=== PATIENT | female | born 1960 | race Two or more races ===

== ENCOUNTER 2024-10-14 08:47 | Outpatient (AMB) | payer BC, SELFPAY ==
[2024-10-14 09:00] VITALS: BP 162/92; PULSE 75; RESP 16; TEMP 36.3; BMI 29.1
--- NOTE | 2024-10-14 09:00 | ORTHONT_ITS ---
Vital signs 10/14/24 09:00 Height 1.68 m Height Method Stated Weight 82.299 kg Weight Measurement Method Standing Scale BMI 29.1 BP 162/92 H Blood Pressure Source Automatic Cuff Blood Pressure Location Right Upper Arm Position Sitting Respiration 16 Pulse 75 Pulse Source Monitor Temp 97.3 F Temp Source Temporal Artery Scan Oxygen Delivery Method Room Air Med/Allergies Allergies & Medications Allergies NKA* Allergy (Uncoded 10/14/24 09:02) Medication Reconciliation labetalol 200 mg tablet (Trandate) 200 mg PO BID #0 tabs 02/21/16 [History Confirmed 10/14/24] lisinopril 20 mg tablet 20 mg PO QDAY #0 tabs 01/05/24 [History Confirmed 10/14/24] Subjective Visit Visit for: follow up visit, knee and injections Immunization / Flu Flu Vaccine in the Last 12 Months: No Flu Vaccine Exclusion Criteria: No Exclusion Criteria History of Present Illness Chief complaint: KNEE INJECTIONS Date of 1st surgery (if applicable): R Knee surgery Patient is a pleasant 63-year-old female with left knee pain. I have been treating her for left knee osteoarthritis for a while. He was then left knee injections of a felt quite a while. She would like new injections today the last one was 3 months ago. The injections lasted for 3 months Personal History Occupation: retired Hobbies: house work Red flag PMH: smoker (non smoker ) and other (specify) (hypertension ) Pain Pain level (0-10): 5 Pain duration: WITH ACTIVITY Pain location: groin, inside (medial), outside (lateral), anterior and posterior Pain quality: sharp, dull and aching Pain timing: increases with activity Associated signs & symptoms: none Ambulatory data Ambulatory device: none Treatments Number of previous injections: 0 Improvement with previous injections: No Improvement with PT: No Improvement with NSAIDS: n/a Review of Systems Review of Systems: All systems negative unless otherwise noted in HPI. Exam Exam Patient is in no acute distress and is cooperative with the examination today. Breathing is nonlabored. In no respiratory distress. Bilateral extremities were evaluated and demonstrates sensation intact to light touch. Palpable pedal pulses are present. No significant edema is present. Bilateral hips were examined. The patient has no pain with log roll of the hips. Internal rotation to 30 degrees and external rotation to 30 degrees is painless. Negative FADIR. Right knee was examined today. The right knee is in reasonable alignment. Range of motion is from 0-120 degrees. Knee is stable to varus and valgus as well as AP translation with <5mm. Patient has a negative McMurrays. There is no pain with patellofemoral compression and no crepitus noted. The knee is nontender to palpation. Left knee is tender to palpation. Range of motion is 5 to 100 degrees. Assessment and Plan Problem List (1) Arthritis of left knee: Status: Acute Plan: Patient is a 63-year-old female with left knee pain and osteoarthritis. She is done with cortisone injections in the past. She would like another cortisone injection today Plan Recommend knee cortisone injection as patient would like to proceed with conservative treatment at this time. The risks and benefits of the procedure were reviewed with the patient and patient gave verbal consent to continue with the procedure. Procedure: performed by Dr. Cabello Using sterile technique the left knee was thoroughly prepped with alcohol, and approximately 1 cc of Kenalog 40 mg/mL and 4 cc of 1% lidocaine was injected without resistance into the medial tibial femoral joint space. The patient tolerated the procedure. Office Procedures GNS Level of Care Nursing/Assessment Patient Status: Established Patient Nursing Assessment/Reassesment: Medication Reconciliation, Update PMH in EMR and Vital Signs Coordination of Care: Complex Care and Chronic Disease 1-5, Education Complex Pt/Fam, Consent,records obtained, informed consent, Results/Orders obtained and Staff clarify orders Special Needs: Language special needs Established Patient Charge Established Patient Point Assignment: 95 Established Patient Point Charge: EP Level 3 (80-115) Surgical Proc/IM SQ injection Major Surgical Procedure: Yes (KNEE INJECTION) Medication Given Medication Given Medication Given: Yes Documented Dose Given: 4 Route: Infiitration Medication Given Medication Given Medication Given: Yes Documented Dose Given: 1 Route: Infiitration Office Meds Xylocaine 10 mg/mL (1 %) injection solution Performing Provider: Abimael Cabello MD Performing Location: [facility] Administered by: Abimael Cabello MD on 10/14/24 10:00 Dose Route Admin Location Dispensed Lot Number Expiration Date ND Maintenance Technician 20 mL Infiltration 20 mL [id number] 06/28/27 68304-442-59 FRES[employer] KA triamcinolone acetonide 40 mg/mL suspension for injection Performing Provider: Abimael Cabello MD Performing Location: [facility] Administered by: Abimael Cabello MD on 10/14/24 10:00 Dose Route Admin Location Dispensed Lot Number Expiration Date [facility] Maintenance Technician 40 mg Infiltration 1 mL [id number] 06/28/26 [address]-9 [employer] Past Medical History Past Medical History Have you ever been diagnosed with any of the following: Respiratory Problems Smoking: No Smoking Exposure: No
== END 2024-10-14 09:35 | disposition home or self-care (01) ==
LOC: HODSRG 08:47
PROVIDERS: PCP Internal Medicine; Referring Provider Internal Medicine; Supervising Provider Orthopaedic Surgery Adult Reconstructive Orthopaedic Surgery; Visit Provider Orthopaedic Surgery Adult Reconstructive Orthopaedic Surgery
DX: M17.12 Unilateral primary osteoarthritis, left knee (principal); I10 Essential (primary) hypertension
CPT/HCPCS: 20610; 99213; J3301; J3490; G0463

== ENCOUNTER 2025-03-07 08:46 | Outpatient (AMB) | payer BC, SELFPAY ==
--- NOTE | 2025-03-07 08:56 | PD.ORTHCLVIS ---
Vital signs 03/07/25 08:57 Height 1.68 m Height Method Stated Weight 80.456 kg Weight Measurement Method Standing Scale BMI 28.5 BP 134/84 H Blood Pressure Source Automatic Cuff Blood Pressure Location Left Upper Arm Position Sitting Respiration 19 Pulse 71 Pulse Source Monitor Temp 96.6 F L Temp Source Temporal Artery Scan Pulse Oximetry (%) 97 Oxygen Delivery Method Room Air Med/Allergies Allergies & Medications Allergies NKA* Allergy (Uncoded 03/07/25 09:01) Medication Reconciliation labetalol 200 mg tablet (Trandate) 200 mg PO BID #0 tabs 02/21/16 [History Confirmed 03/07/25] lisinopril 20 mg tablet 20 mg PO QDAY #0 tabs 01/05/24 [History Confirmed 03/07/25] Exam Exam Patient is in no acute distress and is cooperative with the examination today. Breathing is nonlabored. In no respiratory distress. Bilateral extremities were evaluated and demonstrates sensation intact to light touch. Palpable pedal pulses are present. No significant edema is present. Bilateral hips were examined. The patient has no pain with log roll of the hips. Internal rotation to 30 degrees and external rotation to 30 degrees is painless. Negative FADIR. Right knee was examined today. The right knee is in reasonable alignment. Range of motion is from 0-120 degrees. Knee is stable to varus and valgus as well as AP translation with <5mm. Patient has a negative McMurrays. There is no pain with patellofemoral compression and no crepitus noted. The knee is nontender to palpation. Left knee is tender to palpation. Range of motion is 5 to 100 degrees. Assessment and Plan Problem List (1) Arthritis of left knee: Status: Acute Plan: Patient is a 64-year-old female with left knee pain and osteoarthritis. She is done with cortisone injections in the past. She would like another cortisone injection today. The patient has questions about her billing. I discussed with her that I actually do not know very much and am sending her to the billing department to get her questions answered. Plan Recommend knee cortisone injection as patient would like to proceed with conservative treatment at this time. The risks and benefits of the procedure were reviewed with the patient and patient gave verbal consent to continue with the procedure. Procedure: performed by Dr. Cabello Using sterile technique the left knee was thoroughly prepped with alcohol, and approximately 1 cc of Kenalog 40 mg/mL and 4 cc of 1% lidocaine was injected without resistance into the medial tibial femoral joint space. The patient tolerated the procedure. Office Procedures GNS Level of Care Nursing/Assessment Patient Status: Established Patient Nursing Assessment/Reassesment: Medication Reconciliation, Update PMH in EMR and Vital Signs Coordination of Care: Complex Care/Chronic Disease 5 or more, Education Complex Pt/Fam, Consent,records obtained, informed consent, Results/Orders obtained and Staff clarify orders Established Patient Charge Established Patient Point Assignment: 105 Established Patient Point Charge: EP Level 3 (80-115) Surgical Proc/IM SQ injection Major Surgical Procedure: Yes (LEFT KNEE INJECTION ) Medication Given Medication Given Medication Given: Yes Documented Dose Given: 4 Route: Infiitration Medication Given Medication Given Medication Given: Yes Documented Dose Given: 1 Route: Infiitration Office Meds Xylocaine 10 mg/mL (1 %) injection solution Performing Provider: Abimael Cabello MD Performing Location: [facility] Administered by: Abimael Cabello MD on 03/07/25 09:22 Dose Route Admin Location Dispensed Lot Number Expiration Date [facility] Pipefitter Welder 20 mL Infiltration 20 mL [id number] 05/29/28 61160-512-27 [facility] triamcinolone acetonide 40 mg/mL suspension for injection Performing Provider: Abimael Cabello MD Performing Location: [facility] Administered by: Abimael Cabello MD on 03/07/25 09:22 Dose Route Admin Location Dispensed Lot Number Expiration Date [facility] Pipefitter Welder 40 mg Infiltration KNEE 1 mL [id number] 07/30/26 3486-9855-58 TEVA PARENTERAL MA Intake Visit Data Collection New Patient or Established: Established Patient (seen at [facility] within 3 years) Reason for Visit:: 3 MONTH FOLLOW UP LEFT KNEE INJECTION Qualifications Examiner Required: No Do You Feel Safe at Home: Yes Questionairres Past Medical History Past Medical History Have you ever been diagnosed with any of the following: Respiratory Problems Smoking: No Smoking Exposure: No Subjective Visit Visit for: follow up visit, knee and injections Immunization / Flu Flu Vaccine in the Last 12 Months: Yes Flu Vaccine Exclusion Criteria: Already Received History of Present Illness Chief complaint: 3 MONTH FOLLOW UP LEFT KNEE INJECTION Patient is a 64-year-old female with severe left knee pain and left knee arthritis. We discussed nonoperative and operative options. She wants another injection today. We discussed total knee replacement as a reasonable option. Personal History BMI Counceling provided: Yes Pain Pain level (0-10): 7 Pain quality: sharp and aching Pain timing: increases with activity Associated signs & symptoms: none Ambulatory data Ambulatory device: none Review of Systems Review of Systems: All systems negative unless otherwise noted in HPI.
[2025-03-07 08:57] VITALS: BP 134/84; PULSE 71; RESP 19; TEMP 35.9; O2SAT 97; BMI 28.5
== END 2025-03-07 09:05 | disposition home or self-care (01) ==
LOC: HODSRG 08:46
PROVIDERS: PCP Internal Medicine; Referring Provider Internal Medicine; Supervising Provider Orthopaedic Surgery Adult Reconstructive Orthopaedic Surgery; Visit Provider Orthopaedic Surgery Adult Reconstructive Orthopaedic Surgery
DX: M17.12 Unilateral primary osteoarthritis, left knee (principal); M25.562 Pain in left knee
CPT/HCPCS: 20610; 99213; J3301; J3490; G0463

== ENCOUNTER 2025-06-06 08:42 | Outpatient (AMB) | payer BC, SELFPAY ==
[2025-06-06 08:50] VITALS: BP 184/105; PULSE 68; RESP 18; TEMP 36.3; O2SAT 95; BMI 29.0
--- NOTE | 2025-06-06 08:50 | PD.ORTHCLVIS ---
Vital signs 06/06/25 08:50 Height 1.68 m Height Method Stated Weight 82.1 kg Weight Measurement Method Standing Scale BMI 29.0 BP 184/105 H Blood Pressure Source Automatic Cuff Blood Pressure Location Left Upper Arm Position Sitting Respiration 18 Pulse 68 Pulse Source Monitor Temp 97.4 F Temp Source Temporal Artery Scan Pulse Oximetry (%) 95 Oxygen Delivery Method Room Air Med/Allergies Allergies & Medications Allergies NKA* Allergy (Uncoded 06/06/25 08:51) Medication Reconciliation labetalol 200 mg tablet (Trandate) 200 mg PO BID #0 tabs 02/21/16 [History Confirmed 06/06/25] lisinopril 20 mg tablet 20 mg PO QDAY #0 tabs 01/05/24 [History Confirmed 06/06/25] Exam Exam Patient is in no acute distress and is cooperative with the examination today. Breathing is nonlabored. In no respiratory distress. Bilateral extremities were evaluated and demonstrates sensation intact to light touch. Palpable pedal pulses are present. No significant edema is present. Bilateral hips were examined. The patient has no pain with log roll of the hips. Internal rotation to 30 degrees and external rotation to 30 degrees is painless. Negative FADIR. Right knee was examined today. The right knee is in reasonable alignment. Range of motion is from 0-120 degrees. Knee is stable to varus and valgus as well as AP translation with <5mm. Patient has a negative McMurrays. There is no pain with patellofemoral compression and no crepitus noted. The knee is nontender to palpation. Left knee is tender to palpation. Range of motion is 5 to 100 degrees. Assessment and Plan Problem List (1) Arthritis of left knee: Status: Acute Plan: Patient is a 64-year-old female with left knee pain and osteoarthritis. She is done with cortisone injections in the past. She would like another cortisone injection today. The patient has questions about her billing. I discussed with her that I actually do not know very much and am sending her to the billing department to get her questions answered. Plan Recommend knee cortisone injection as patient would like to proceed with conservative treatment at this time. The risks and benefits of the procedure were reviewed with the patient and patient gave verbal consent to continue with the procedure. Procedure: performed by Dr. Cabello Using sterile technique the left knee was thoroughly prepped with alcohol, and approximately 1 cc of Kenalog 40 mg/mL and 4 cc of 1% lidocaine was injected without resistance into the medial tibial femoral joint space. The patient tolerated the procedure. Office Procedures GNS Level of Care Nursing/Assessment Patient Status: Established Patient Nursing Assessment/Reassesment: Medication Reconciliation, Update PMH in EMR and Vital Signs Coordination of Care: Complex Care and Chronic Disease 1-5, Education Complex Pt/Fam, Consent,records obtained, informed consent, Lab and Imaging orders, Results/Orders obtained and Staff clarify orders Established Patient Charge Established Patient Point Assignment: 110 Established Patient Point Charge: EP Level 3 (80-115) Surgical Proc/IM SQ injection Major Surgical Procedure: Yes (KNEE INJECTION) Medication Given Medication Given Medication Given: Yes Documented Dose Given: 4 Route: Infiitration Medication Given Medication Given Medication Given: Yes Documented Dose Given: 1 Route: Infiitration Office Meds Xylocaine 10 mg/mL (1 %) injection solution Performing Provider: Abimael Cabello MD Performing Location: [facility] Administered by: Abimael Cabello MD on 06/06/25 09:10 Dose Route Admin Location Dispensed Lot Number Expiration Date [facility] Turner Machine Operator 20 mL Infiltration 20 mL [id number] 08/29/28 23933-396-17 FR[employer] KA triamcinolone acetonide 40 mg/mL suspension for injection Performing Provider: Abimael Cabello MD Performing Location: [facility] Administered by: Abimael Cabello MD on 06/06/25 09:10 Dose Route Admin Location Dispensed Lot Number Expiration Date [facility] [employer] Machine Operator 40 mg intra-articular KNEE 1 mL [id number] 12/29/26 64721-730-15 ROSAS TEE MA Intake Visit Data Collection New Patient or Established: Established Patient (seen at [facility] within 3 years) Reason for Visit:: LEFT KNEE PAIN FOLLOW UP/POSS INJ Seen by Clinical Staff ONLY (RN/MA): No PCP or OBGYN visit in last 3 months: Yes Hx Now: No Do You Feel Safe at Home: Yes Authorities Contacted: N/A Questionairres Past Medical History Past Medical History Have you ever been diagnosed with any of the following: Cardiology Problems Hypertension: Yes Respiratory Problems Smoking: No Smoking Exposure: No Subjective Visit Visit for: follow up visit, knee (LEFT) and injections Immunization / Flu Flu Vaccine in the Last 12 Months: No Flu Vaccine Exclusion Criteria: No Exclusion Criteria History of Present Illness Chief complaint: 3 MONTH FOLLOW UP LEFT KNEE INJECTION Patient is a 64-year-old female with severe left knee pain and left knee arthritis. We discussed nonoperative and operative options. She wants another injection today. We discussed total knee replacement as a reasonable option. She reports that right now is not the time to get surgery because there is a lot going on with her family Personal History BMI Counceling provided: Yes Pain Pain level (0-10): 10 Pain duration: CONSTANT Pain location: inside (medial) and anterior Pain quality: sharp, dull and aching Pain timing: night, increases with activity and stairs Associated signs & symptoms: stiffness Ambulatory data Ambulatory device: none Treatments Number of previous injections: 1 Improvement with previous injections: Yes Improvement with PT: No Improvement with NSAIDS: no Review of Systems Review of Systems: All systems negative unless otherwise noted in HPI.
== END 2025-06-06 09:20 | disposition home or self-care (01) ==
PROVIDERS: PCP Internal Medicine; Referring Provider Internal Medicine; Supervising Provider Orthopaedic Surgery Adult Reconstructive Orthopaedic Surgery; Visit Provider Orthopaedic Surgery Adult Reconstructive Orthopaedic Surgery
DX: M17.12 Unilateral primary osteoarthritis, left knee (principal); M25.562 Pain in left knee; I10 Essential (primary) hypertension
CPT/HCPCS: 20610; 99213; J3301; J3490; G0463

== ENCOUNTER → 2025-08-04 | Outpatient (CLI) | payer BC, SELFPAY ==
[2025-08-04 10:30] LABS: Basophils # (Auto) 0.0 Thou/mm3 (0.0-0.2); Basophils % (Auto) 0 % (0-2.5); Eosinophils # (Auto) 0.2 Thou/mm3 (0.0-0.5); Eosinophils % (Auto) 3 % (0-10); Hematocrit 41.5 % (36.0-46.0); Hemoglobin 13.9 g/dL (12.0-16.0); Immature Granulocytes Auto 0.03 Thou/mm3 (0.00-0.00); Lymphocytes # (Auto) 1.7 Thou/mm3 (1.0-4.8); Lymphocytes % (Auto) 20 % (10-50); Mean Corpuscular HGB Conc 33.5 g/dl (31.0-37.0); Mean Corpuscular Hemoglobin 29.3 pg (25.0-35.0); Mean Corpuscular Volume 88 fL (80-100); Monocytes # (Auto) 0.5 Thou/mm3 (0.0-0.8); Monocytes % (Auto) 6 % (0-12); Neutrophils # (Auto) 5.7 Thou/mm3 (1.8-7.7); Neutrophils % (Auto) 71 % (37-80); Nucleated Red Blood Cell # 0.00 Thou/mm3 (0.00-0.00); Nucleated Red Blood Cell % 0 /100 WBC (0); Platelet Count 253 Thou/mm3 (140-440); RDW Standard Deviation 42.5 fL (36.4-46.3); Red Blood Count 4.74 Miln/mm3 (4.00-5.20); White Blood Count 8.1 Thou/mm3 (3.6-11.0)
[2025-08-04 10:43] LABS: Glucose Estimated Average 108 mg/dL (80-131); Hemoglobin A1C 5.4 % Hgb (4.8-6.0)
[2025-08-04 10:55] LABS: Alanine Aminotransferase 16 U/L (10-49); Albumin, Serum 4.4 gm/dL (3.4-4.8); Albumin/Globulin Ratio 1.8 (1.2-2.2); Alkaline Phosphatase 95 U/L (46-116); Anion Gap 12 (7-16); Aspartate Amino Transferase 14 U/L (0-34); BUN/Creatinine Ratio 20 Ratio (12-20); Bilirubin,Total 0.6 mg/dL (0.3-1.2); Blood Urea Nitrogen 16 mg/dL (9-23); Calcium 10.2 mg/dL (8.3-10.6); Calcium (Corrected) 10.2 mg/dL (8.5-10.1); Carbon Dioxide 28.5 mMol/L (20.0-31.0); Cardiac Risk Estimate 3.8 RATIO (3.7-5.6); Chloride 107 mMol/L (98-107); Cholesterol 191 mg/dL (132-200); Creatinine (Component) 0.8 mg/dL (0.6-1.3); Free T4 (Free Thyroxine) 1.33 ng/dL (0.89-1.76); Globulin 2.5 gm/dL (2.3-3.5); Glucose 85 mg/dL (74-106); HDL Cholesterol 50 mg/dL (40-60); LDL Cholesterol,Calculated 122 mg/dL (0-130); Osmolality,Calculated 292 (275-295); Potassium 3.4 mMol/L (3.4-5.1); Sodium 147 mMol/L (136-145); Thyroid Stimulating Hormone 0.67 uIU/mL (0.55-4.78); Total Protein 6.9 gm/dL (5.7-8.2); Triglycerides 96 mg/dL (30-150); eGFR > 60 See Note
[2025-08-04 10:56] LABS: Vitamin B12 731 pg/mL (211-911); Vitamin D 25 Hydroxy Total 43.6 ng/mL (7.3-40.2)
== END | disposition home or self-care (01) ==
PROVIDERS: PCP Internal Medicine; Referring Provider Internal Medicine; Visit Provider Internal Medicine
DX: Z00.00 Encounter for general adult medical examination without abnormal findings (principal); E55.9 Vitamin D deficiency, unspecified; E78.2 Mixed hyperlipidemia; E03.9 Hypothyroidism, unspecified
CPT/HCPCS: 36415; 80053; 80061; 82306; 82607; 83036; 84439; 84443; 85025

== ENCOUNTER → 2025-09-06 | Outpatient (CLI) | payer BC, SELFPAY ==
--- NOTE | 2025-09-06 10:30 | XR_ITS ---
Examination: Screening digital mammography, bilateral Computer aided detection 3-D breast Tomosynthesis, bilateral Date and time of exam: September 06, 2025, 10:24 a.m., compared to mammogram dated December 18, 2013 Indication: Screening Technique: Nonmagnified MLO, CC views of the breasts to been obtained, reconstructed from 3-D Tomosynthesis images. R2 computer aided detection program utilized for evaluation of suspicious masses and/or abnormal calcifications. 3-D Tomosynthesis images obtained. Findings: The breasts are heterogeneously dense, which may obscure small masses Benign calcifications. No interval suspicious masses Impression: BI-RADS category II: Benign Findings. Recommend 1 year follow-up mammogram.
== END | disposition home or self-care (01) ==
LOC: CDIM 10:05
PROVIDERS: Referring Provider Internal Medicine; Visit Provider Internal Medicine
DX: Z12.31 Encounter for screening mammogram for malignant neoplasm of breast (principal); R92.323 Mammographic fibroglandular density, bilateral breasts; R92.1 Mammographic calcification found on diagnostic imaging of breast
CPT/HCPCS: 77063; 77067

== ENCOUNTER 2025-09-21 09:26 | Outpatient (AMB) | payer BC, SELFPAY ==
--- NOTE | 2025-09-21 09:54 | PD.ORTHCLVIS ---
Vital signs 09/21/25 09:55 Height 1.68 m Height Method Stated Weight 84.992 kg Weight Measurement Method Standing Scale BMI 30.1 BP 126/82 Blood Pressure Source Automatic Cuff Blood Pressure Location Left Upper Arm Position Sitting Respiration 18 Pulse 75 Pulse Source Monitor Temp 97.3 F Temp Source Temporal Artery Scan Pulse Oximetry (%) 97 Oxygen Delivery Method Room Air Med/Allergies Allergies & Medications Allergies NKA* Allergy (Uncoded 09/21/25 09:55) Medication Reconciliation labetalol 200 mg tablet (Trandate) 200 mg PO BID #0 tabs 02/21/16 [History Confirmed 09/21/25] lisinopril 20 mg tablet 20 mg PO QDAY #0 tabs 01/05/24 [History Confirmed 09/21/25] Exam Exam Patient is in no acute distress and is cooperative with the examination today. Breathing is nonlabored. In no respiratory distress. Bilateral extremities were evaluated and demonstrates sensation intact to light touch. Palpable pedal pulses are present. No significant edema is present. Bilateral hips were examined. The patient has no pain with log roll of the hips. Internal rotation to 30 degrees and external rotation to 30 degrees is painless. Negative FADIR. Right knee was examined today. The right knee is in reasonable alignment. Range of motion is from 0-120 degrees. Knee is stable to varus and valgus as well as AP translation with <5mm. Patient has a negative McMurrays. There is no pain with patellofemoral compression and no crepitus noted. The knee is nontender to palpation. Left knee is tender to palpation. Range of motion is 5 to 100 degrees. Assessment and Plan Problem List (1) Arthritis of left knee: Status: Acute Plan: Patient is a 64-year-old female with left knee pain and osteoarthritis. She is done with cortisone injections in the past. She would like another cortisone injection today. The patient has questions about her billing. I discussed with her that I actually do not know very much and am sending her to the billing department to get her questions answered. Plan Recommend knee cortisone injection as patient would like to proceed with conservative treatment at this time. The risks and benefits of the procedure were reviewed with the patient and patient gave verbal consent to continue with the procedure. Procedure: performed by Dr. Cabello Using sterile technique the left knee was thoroughly prepped with alcohol, and approximately 1 cc of Kenalog 40 mg/mL and 4 cc of 1% lidocaine was injected without resistance into the medial tibial femoral joint space. The patient tolerated the procedure. Office Procedures GNS Level of Care Nursing/Assessment Patient Status: Established Patient Nursing Assessment/Reassesment: Medication Reconciliation, Update PMH in EMR and Vital Signs Coordination of Care: Complex Care and Chronic Disease 1-5, Education Complex Pt/Fam, Consent,records obtained, informed consent, Results/Orders obtained and Staff clarify orders Established Patient Charge Established Patient Point Assignment: 95 Established Patient Point Charge: EP Level 3 (80-115) Surgical Proc/IM SQ injection Minor Surgical Procedure: Yes (KNEE INJECTION) Medication Given Medication Given Medication Given: Yes Documented Dose Given: 1 Route: Infiitration Medication Given Medication Given Medication Given: Yes Documented Dose Given: 4 Route: Infiitration Office Meds methylprednisolone acetate 80 mg/mL suspension for injection Performing Provider: Abimael Cabello MD Performing Location: [facility] Administered by: Abimael Cabello MD on 09/21/25 11:00 Dose Route Admin Location Dispensed Lot Number Expiration Date Package ND NDC Surface Water Manager 80 mg intra-articular 1 mL [id number] 05/29/27 [address]-3 [id number] [employer] ropivacaine (PF) 2 mg/mL (0.2 %) injection solution Performing Provider: Abimael Cabello MD Performing Location: [facility] Administered by: Abimael Cabello MD on 09/21/25 11:00 Dose Route Admin Location Dispensed Lot Number Expiration Date Package NDC NDC Surface Water Manager 20 mL Infiltration 20 mL [id number] 12/29/27 76917-661-09 [id number] [facility] Intake Visit Data Collection New Patient or Established: Established Patient (seen at [facility] within 3 years) Reason for Visit:: LEFT KNEE PAIN FOLLOW UP/POSS INJ Seen by Clinical Staff ONLY (RN/MA): No PCP or OBGYN visit in last 3 months: Yes Hx Now: No Do You Feel Safe at Home: Yes Authorities Contacted: N/A Questionairres Past Medical History Past Medical History Have you ever been diagnosed with any of the following: Cardiology Problems Hypertension: Yes Respiratory Problems Smoking: No Smoking Exposure: No Subjective Visit Visit for: follow up visit Immunization / Flu Flu Vaccine in the Last 12 Months: No Flu Vaccine Exclusion Criteria: No Exclusion Criteria History of Present Illness Chief complaint: 3 MONTH FOLLOW UP LEFT KNEE INJECTION Patient is a 64-year-old female with severe left knee pain and left knee arthritis. We discussed nonoperative and operative options. She wants another injection today. We discussed total knee replacement as a reasonable option. She reports that right now is not the time to get surgery because there is a lot going on with her family Personal History BMI Counceling provided: Yes Pain Pain level (0-10): 10 Pain duration: CONSTANT Pain location: inside (medial) and anterior Pain quality: sharp, dull and aching Pain timing: night, increases with activity and stairs Associated signs & symptoms: stiffness Ambulatory data Ambulatory device: none Treatments Number of previous injections: 1 Improvement with previous injections: Yes Improvement with PT: No Improvement with NSAIDS: no Review of Systems Review of Systems: All systems negative unless otherwise noted in HPI.
[2025-09-21 09:55] VITALS: BP 126/82; PULSE 75; RESP 18; TEMP 36.3; O2SAT 97; BMI 30.1
== END 2025-09-21 09:57 | disposition home or self-care (01) ==
LOC: HODSRG 09:26
PROVIDERS: PCP Internal Medicine; Referring Provider Internal Medicine; Supervising Provider Orthopaedic Surgery Adult Reconstructive Orthopaedic Surgery; Visit Provider Orthopaedic Surgery Adult Reconstructive Orthopaedic Surgery
DX: M25.562 Pain in left knee (principal); M17.12 Unilateral primary osteoarthritis, left knee; I10 Essential (primary) hypertension
CPT/HCPCS: 20610; 99213; J1010; J2795; G0463